=== PATIENT | female | born 1975 | race African-American/Black ===

== ENCOUNTER 2018-03-17 06:11 | Emergency (ER) | payer MEDICARE, MEDICAID ==
[~2018-03-17] VITALS: Ht 167.6 cm; Wt 64.5 kg
[~2018-03-17 06:11] MED LIST: AMOXICILLIN500 MG PO; CIPRODEX1 ML AS; CORTISPORIN OTI10 M2 AS; CORTISPORIN OTI10 ML AS; LORTAB 5 OR; NAPROSYN500 MG OR; NAPROSYN500 MG PO; NO CURRENT MEDS; NO MEDICATIONS; PENICILLN VK500 M1 OR; PENICILLN VK500 MG OR; ULTRAM50 MG OR
[2018-03-17] MEDS ORDERED: AMOXICILLIN500 MG PO (06:28)
[2018-03-17] MEDS ORDERED: ULTRAM50 M1 PO (06:28)
[2018-03-17 06:37] VITALS: BP 142/89
== END 2018-03-17 06:38 | disposition home or self-care (01) ==
LOC: ED 06:11
DX: K04.7 Periapical abscess without sinus (principal); K08.89 Other specified disorders of teeth and supporting structures

== ENCOUNTER 2018-06-28 08:20 | Emergency (ER) | payer MEDICARE, MEDICAID ==
[~2018-06-28] VITALS: Ht 167.6 cm; Wt 65.9 kg
[~2018-06-28 08:20] MED LIST changes: +ULTRAM50 M1 PO
[2018-06-28] MEDS ORDERED: AMOXICILLIN500 MG PO (08:47)
[2018-06-28] MEDS ORDERED: TORADOL PO (08:47)
[2018-06-28 08:53] VITALS: BP 155/107
== END 2018-06-28 08:54 | disposition home or self-care (01) ==
LOC: ED 08:20
DX: K08.89 Other specified disorders of teeth and supporting structures (principal)